=== PATIENT | female | born 1980 | race Caucasian/White ===

== ENCOUNTER → 2019-06-20 11:35 | Outpatient (CLI) | payer MEDICARE, MEDICAID, SELFPAY ==
--- NOTE | 2019-06-20 | DI.RAD.S_ITS ---
PROCEDURE: XR BONE LENGTH SCANOGRAM INDICATIONS: Unequal limb length (acquired), unspecified site TECHNIQUE: A single frontal standing view of both lower extremities acquired, with measuring ruler situated between the legs. COMPARISON: None. FINDINGS: Right: Total leg length is 84 cm. Left: Total leg length is 84 cm. IMPRESSION: No significant leg length discrepancy. Dictated by: Estephanie Espana M.D. on 06/21/2019 at 11:35 Approved by: Estephanie Espana M.D. on 06/21/2019 at 17:45
== END ==
PROVIDERS: PCP Family Medicine; Visit Provider Family Medicine
DX: M21.70 Unequal limb length (acquired), unspecified site (principal)
CPT/HCPCS: 77073; 77075

== ENCOUNTER 2022-04-22 11:50 | Day surgery (SDC) | payer MEDICARE, MEDICAID, SELFPAY ==
[2022-04-13 14:31] VITALS: BMI 43.0
[2022-04-22 12:14] VITALS: BP 130/80; PULSE 106; RESP 16; TEMP 36.8; O2SAT 100
[2022-04-22 12:40] VITALS: BMI 43.0
[2022-04-22 13:08] LABS: COVID19 -Nasal RAPID Negative (Negative)
== END 2022-04-22 11:55 | disposition home or self-care (01) ==
LOC: OR 11:51 → AC 13:59 → OR 04-23 09:58
PROVIDERS: PCP Nurse Practitioner Family; Referring Provider Obstetrics & Gynecology; Visit Provider Obstetrics & Gynecology
PROC: 0UT94ZZ Resection of Uterus, Percutaneous Endoscopic Approach (ICD-10-PCS; principal; 2022-04-22 13:45)
DX: N92.1 Excessive and frequent menstruation with irregular cycle (principal); E11.9 Type 2 diabetes mellitus without complications; Z20.822 Contact with and (suspected) exposure to COVID-19; Z53.9 Procedure and treatment not carried out, unspecified reason
CPT/HCPCS: 87635; C9803

== ENCOUNTER 2022-06-17 06:15 | Day surgery (SDC) | payer MEDICARE, MEDICAID, SELFPAY ==
[2022-06-16 08:46] VITALS: BMI 43.0
[2022-06-17] VITALS (12 sets, daily range): BP systolic 131–147; BP diastolic 79–90; PULSE 80–106; RESP 13–20; TEMP 35.9–37.4; O2SAT 91–98; BMI 43.0
--- NOTE | 2022-06-17 | PATH_ITS ---
[facility] Accession Number: [id number] . 01 Material submitted: . uterus - UTERUS, CERVIX AND BILATERAL FALLOPIAN TUBES . 01 Diagnosis: Uterus, Cervix, and Bilateral Fallopian Tubes; Hysterectomy and Bilateral Salpingectomy (with Preserved Ovaries): Cervix: Benign cervix with tunnel clusters and mild chronic inflammation. Negative for dysplasia and malignancy. Endometrium: Nonproliferative endometrium with focal changes suggestive of hormonal/progestin effect. Negative for endometrial polyps, hyperplasia, atypia, and malignancy. Myometrium: Negative for adenomyosis (on professional healthcare representative sections), leiomyomas, atypia, and malignancy. Bilateral fallopian fallopian tubes: Benign without atypia or malignancy. Paratubal cysts also present. MRV 06/21/2022 1717 Local . 01 Electronically signed: . Salomón Yusuf MD, Pathologist NPI- [id number] . 01 Gross description: . The specimen is received in formalin, labeled with the patient's name and uterus, cervix, bilat fallopian tubes, and consists of an intact uterus measuring (124 g, 10.4 cm SI, 5.3 cm ML, 4.7 cm AP) with attached cervix (3.5 x 2.4 cm), and two unoriented detached, fimbriated fallopian tubes (8.0 x 0.7 cm and 6.7 x 0.8 cm, respectively), with no additional adnexa identified. The ectocervix is pink-padilla and finely granular while the cervical os is patulous and measures 1.0 cm in diameter. The anterior parametrial margin is inked blue while the posterior parametrial margin is inked black. The uterine serosa is padilla and smooth with an area of hemorrhage measuring up to 2.1 cm in greatest dimension. The endocervical canal has padilla herringbone mucosa with multiple cystic structures filled with clear to white gelatinous material and measuring up to 0.8 cm in greatest dimension. The endocervical canal measures 3.3 cm in length. The endometrial cavity measures 2.9 cm from cornu to cornu and 5.2 cm in length with pink, lush endometrium that averages 0.2 cm thick with no lesions identified. The myometrium is padilla, firm, and trabecular with no nodules or lesions identified and measures up to 2.5 cm in maximum thickness. The longer fallopian tube has congested smooth serosa with multiple cystic structures near the fimbriated end measuring up to 0.7 cm in greatest dimension, filled with clear serous fluid. Sectioning reveals an unremarkable stellate lumen. The shorter fallopian tube has congested smooth serosa with no cystic structures identified. Sectioning reveals an unremarkable stellate lumen. Smoke Jumper sections are submitted as follows: A1: Anterior cervix and professional healthcare representative endocervical cyst. A2: Posterior cervix. A3: Anterior full-thickness section. A4: Posterior full-thickness section. A5: Longer fallopian tube to include professional healthcare representative cross sections and entire fimbriae. A6: [place] fallopian tube to include professional healthcare representative cross sections and entire fimbriae. ([id number]) /FRR 06/20/2022 [facility]2 Local . 01 Pathologist provided ICD-10: N92.1 . 01 CPT . 324940 Specimen Comment: A courtesy copy of this report has been sent to [phone] Performed at: 01 [facility] [address] [place] [address] [address] [facility], [place], [place] [id number] MD Donovan Azul MD Phone: [phone]
--- NOTE | 2022-06-17 06:36 | PM.GYNHP.1 ---
History of Present Illness History of Present Illness Reason for admission: vaginal bleeding Narrative: Patient is a 41-year-old para 3, LMP 05/23 - 06/04 who has had heavy menses since she started at age 10.? The patient has had 3 vaginal deliveries.? She had a Mirena IUD replaced after 5 years approximately 4 years ago.? She was evaluated and had the IUD appeared to be lower in the cervix so the IUD was removed and replaced on 01/06/2022.? Patient continues to have significant cramping with her menses.? She bleeds through overnight pads and super tampons every hour.? Periods are regular but last for 7 days.? She has a history of anemia and is on iron therapy.? She is not currently sexually active.? She has been evaluated by Urology for urinary incontinence.? She has irritable bowel syndrome so has constipation and diarrhea it periodically.? Patient had a normal Pap smear with negative HPV on 12/02/2021 and a endometrial biopsy that was negative for cancer precancer cells on 01/07/2022.? In November the patient had a normal ultrasound other than the malpositioned IUD. On physical exam the patient's abdomen is obese with no palpable organomegaly.? No significant tenderness.? Normal appearing external genitalia.? Normal-appearing vagina and cervix.? Bimanual was not performed because of the BMI would not have much information.? Repeat transvaginal ultrasound shows the IUD is in the correct place that at this time.? Patient with continued bleeding despite the Mirena IUD.? The patient has type 2 diabetes and her most recent A1c in January of 2022 is 6.7.? Patient is requesting proceeding with hysterectomy which has been scheduled for 06/17/2022 and she presents today for her scheduled procedure.? [facility] Medical History (Updated 03/03/22 @ 10:00 by Ronald Red MD) Abnormal Pap smear of cervix (~2007) Acne (~1994) ADHD (~1989) Anxiety (~1999) Autism (~1983) Chicken pox Depression (~1999) Diabetes mellitus (~2012) Frequent UTI (~2010) GERD (gastroesophageal reflux disease) (~2005) Heavy menstrual period (~1990) History of bipolar disorder (~1999) History of recurrent ear infection (~1984) History of urinary incontinence (~2010) Hypothyroidism Irregular menstrual cycle (~1990) Irritable bowel syndrome (~2009) Mumps (~1989) Painful menstrual periods (~1990) Pancreatitis (~2013) PTSD (post-traumatic stress disorder) (~1999) Seizures (~2018) Sleep apnea (~2011) Tachycardia (~2008) Surgical History (Updated 01/05/22 @ 21:02 by Irish Lizama) Anesthesia History of cholecystectomy (~11/2013) Family History (Updated 01/05/22 @ 21:04 by Irish Lizama) Father History of heart disease Mother Diabetes mellitus Grandmother Cancer Grandfather History of heart disease Social History household members: spouse and children Smoking Status: Never smoker alcohol intake: never Meds Home Medications and Allergies Home Medications Medication Instructions Recorded Confirmed Type atorvastatin 80 mg tablet 80 mg PO DAILY 12/02/21 06/16/22 History citalopram 20 mg tablet 20 mg PO DAILY 12/02/21 06/16/22 History cyclobenzaprine 10 mg tablet 10 mg PO TID 12/02/21 06/16/22 History dicyclomine 20 mg tablet 20 mg PO TID 12/02/21 06/16/22 History dulaglutide 1.5 mg/0.5 mL 1.5 mg SUBCUT QWEEK 12/02/21 06/16/22 History subcutaneous pen injector (Trulicity) famotidine 20 mg tablet 20 mg PO BID 12/02/21 06/16/22 History imipramine HCl 25 mg tablet 25 mg PO TID 12/02/21 06/16/22 History insulin aspart U-100 100 unit/mL 12 unit SUBCUT TID 12/02/21 06/16/22 History (3 mL) subcutaneous pen (Novolog Flexpen U-100 Insulin aspart) insulin glargine 100 unit/mL (3 20 unit SUBCUT BID 12/02/21 06/16/22 History mL) subcutaneous pen (Basaglar KwikPen U-100 Insulin) levetiracetam 500 mg tablet 500 mg PO BID 12/02/21 06/16/22 History (Keppra) levonorgestrel 20 mcg/24 hours (7 intrauterine 12/02/21 04/01/22 History yrs) 52 mg intrauterine device (Mirena) levothyroxine 25 mcg tablet 25 mcg PO DAILY 12/02/21 06/16/22 History meloxicam 15 mg tablet 15 mg PO DAILY 12/02/21 06/16/22 History metformin 1,000 mg tablet 1,000 mg PO BID 12/02/21 06/16/22 History oxcarbazepine 300 mg tablet 300 mg PO QID 12/02/21 06/16/22 History oxybutynin chloride 5 mg 5 mg PO BID 12/02/21 06/16/22 History tablet,extended release 24 hr promethazine 25 mg tablet 25 mg PO QID PRN Nausea 12/02/21 06/16/22 History propranolol 20 mg tablet 20 mg PO BID 12/02/21 06/16/22 History risperidone 1 mg tablet 1 mg PO DAILY 12/02/21 06/16/22 History lisinopril 10 mg tablet 10 mg PO DAILY 02/10/22 06/16/22 History Allergies Allergy/AdvReac Type Severity Reaction Status Date / Time aripiprazole [From Abilify] AdvReac Unknown panic Verified 04/22/22 12:17 attack fluoxetine [From Prozac] AdvReac Unknown Verified 04/22/22 12:17 trazodone AdvReac Unknown panic Verified 04/22/22 12:17 attack Review of Systems Review of Systems Narrative: Problem-specific ROS positives included in HPI Exam Const General: cooperative and comfortable Nutritional Appearance: average body habitus Orientation: alert and oriented x3 HENMT Head: normal to inspection, atraumatic and abrasion Ears: hearing grossly normal bilaterally Face and sinus: face symmetric Eyes General: appearance normal, both eyes and all related structures Conjunctivae: conjunctivae normal Sclera: sclerae normal EOM: EOM intact bilaterally Neck Neck: normal visual inspection Resp Effort & Inspection: normal respiratory effort and able to speak in complete sentences Auscultation: clear to auscultation bilaterally Cardio Rate: regular rate Rhythm: regular rhythm Heart Sounds: S1 normal, S2 normal and no murmurs GI Inspection: normal to inspection Palpation: soft, no hepatosplenomegaly and No tender External Female Exam: normal external appearance Speculum Exam - Vagina: normal appearance of the vagina and normal vaginal discharge Speculum Exam - Cervix: normal appearance of the cervix Bimanual Exam- Vagina & Uterus: normal bimanual exam, uterine size normal, uterine mobility normal and no cervical motion tenderness Bimanual Exam- Adnexa, other: normal adnexae, no masses and other (Unable to fully assess due to habitus) Extrem General: no calf tenderness Psych Appearance: grossly normal Mental Status: mental status grossly normal Speech and Movement: speech and movement normal Mood: congruent mood Affect: normal affect Attitude: cooperative Thought Process: normal Thought Content: normal Judgment: judgment good Assessment & Plan Assessment and plan (1) Menometrorrhagia: Status: Acute (2) Painful menstrual periods: Status: Acute Plan Patient counseled regarding alternatives, risks, benefits, and potential complications associated with total laparoscopic hysterectomy with bilateral salpingectomy.? With full understanding of the above, a written consent was executed, signed, and witnessed this date. Time Spent With Patient Critical Care time: I spent a total of [] minutes of critical care time on this patient's care today; this time is exclusive of procedural time.
--- NOTE | 2022-06-17 06:50 | PM.PREOP ---
Pre-operative Note COVID-19 COVID-19 status: Negative Result date/Date tested (Pos, Neg/Pending): 06/17/22 Criteria for continued procedure: Non-surgical alternatives not available or appropriate per current SOC Interval Note History & Physical reviewed/Exam performed by Physician: Yes Changes to H&P: No
[2022-06-17 07:06] LABS: COVID19 -Nasal RAPID Negative (Negative)
[2022-06-17] MEDS: CEFAZOLIN 2 GM/100 ML PREMIX 100 ML IV (08:30)
--- NOTE | 2022-06-17 08:49 | SUR.OPER ---
Lithotomy on padded OR bed. [place] Pad Positioner under torso. Head on pillow, arms padded and tucked at sides. Legs secured in padded yellow fins stirrups.
[2022-06-17] MEDS: LACTATED RINGERS 1,000 ML 100 ML IV ×3 (09:00→13:19)
[2022-06-17] MEDS: BUPIVACAINE 0.5% W/ EPI (PF) 30 ML VIAL INJ (09:05)
[2022-06-17] MEDS: CEFAZOLIN VIAL 1 GM in SODIUM CHLORIDE 0.9% 100 ML IV (09:15)
--- NOTE | 2022-06-17 12:06 | P.OP_ITS ---
Operative Date/Time/Diagnoses Date of procedure: 06/17/22 Time of procedure: 08:25 Pre-op diagnosis: Menometrorrhagia Dysmenorrhea Morbid obesity Post-op diagnosis: same Procedure & Clinicians Procedure: Procedures Operation Date: 06/17/22 07:45 Actual Procedure Side Surgeon p Removal of IUD, Laparoscopic-assisted vaginal hysterectomy with bilateral salpingectomy Ronald Red MD Indications: Patient is a 41-year-old para 3, LMP 05/23 - 06/04 who has had heavy menses since she started at age 10.? The patient has had 3 vaginal deliveries.? She had a Mirena IUD replaced after 5 years approximately 4 years ago.? She was evaluated and had the IUD appeared to be lower in the cervix so the IUD was removed and replaced on 01/06/2022.? Patient continues to have significant cramping with her menses.? She bleeds through overnight pads and super tampons every hour.? Periods are regular but last for 7 days.? She has a history of anemia and is on iron therapy.? She is not currently sexually active.? She has been evaluated by Urology for urinary incontinence.? She has irritable bowel syndrome so has constipation and diarrhea it periodically.? Patient had a normal Pap smear with negative HPV on 12/02/2021 and a endometrial biopsy that was negative for cancer precancer cells on 01/07/2022.? In November the patient had a normal ultrasound other than the malpositioned IUD. On physical exam the patient's abdomen is obese with no palpable organomegaly.? No significant tenderness.? Normal appearing external genitalia.? Normal-appearing vagina and cervix.? Bimanual was not performed because of the BMI would not have much information.? Repeat transvaginal ultrasound shows the IUD is in the correct place that at this time.? Patient with continued bleeding despite the Mirena IUD.? The patient has type 2 diabetes and her most recent A1c in January of 2022 is 6.7.? Patient is requesting proceeding with hysterectomy which has been scheduled for 06/17/2022 and she presents today for her scheduled procedure.? Surgeon: Ronald Red Roller Operator: Shara Quiroz Anesthesia Type: General Operative Notes Findings: At the beginning of the case, an intact Mirena IUD was present within the endometrial cavity and removed at the outset of the procedure. The uterus is normal in size and shape. The fallopian tubes are also normal as are the ovaries. The anterior and posterior cul-de-sacs could not be visualized due to marked pelvic adiposity and distention of the sigmoid colon which made it impossible to fully visualize the pelvis and to deviate from the planned total laparoscopic hysterectomy in favor of laparoscopic-assisted vaginal hysterectomy with bilateral salpingectomy. The upper abdomen was normal to laparoscopic visualization. The appendix was not visualized. Closure Type: primary Specimen(s): left tube, right tube and uterus Applied: catheter Estimated blood loss (mL): 200 Blood products transfused: none Procedure in detail: With the patient under satisfactory general anesthesia in the modified dorsal lithotomy position, the perineum, vagina, and abdomen were prepped and draped in the usual manner for total laparoscopic hysterectomy. A Luo catheter was inserted in the bladder. A pre-surgical safety time-out was then taken in accordance with [facility] Main OR protocols. A Jose Carlos clamp was used to remove the IUD from the endometrial cavity and the IUD itself was found to be intact. The endocervical canal was then dilated and a [employer] uterine manipulator with a large cup was placed and secured. The skin of the umbilicus was infiltrated with 0.5% Marcaine with epinephrine and a 1 cm transverse umbilical incision was made. A Veress needle was then used to insufflate the abdomen with carbon dioxide in once insufflated a 5 mm laparoscopic trocar and sleeve were placed through the incision. Correct placement of the trocar in the abdominal cavity was confirmed with the laparoscoped and a 2nd and 3rd 5 mm trocar and sleeve were placed in the right and left mid quadrants using a similar technique. A 4th 5 mm trocar and sleeve was then placed in the midline in the suprapubic region. Using a 4 puncture technique, attempts were made to thoroughly visualize the pelvis but these efforts were frustrated by distended sigmoid and marked adiposity in the pelvis as well as the omentum and the epiploica of the large intestine. As result the posterior cul-de-sac and even the anterior cul-de-sac could not be well-visualized and the decision was therefore made to change the surgical plan from total laparoscopic hysterectomy to a laparoscopic-assisted vaginal hysterectomy. The left fallopian tube was grasped at its distal most portion and using a LigaSure device, the fimbria ovarica was coagulated and divided followed by coagulation and division of the mesosalpinx to the level of the cornua at which point the tube itself was coagulated, divided, and removed through 1 of the 5 mm ports. Attention was then turned to the right side with the distal tube grasped with a grasping forceps and LigaSure device used to coagulate 1st the fimbria ovarica followed by coagulation and division of the mesosalpinx to the cornua on the right side where the tube was amputated and retrieved through 1 of the 5 mm ports. The LigaSure device was then used to coagulate and divide the utero-ovarian ligament on the right side followed by the round ligament on the right side. The dissection could not be carried downward any further due to inadequate exposure. Attention was then turned to the left side where the utero-ovarian ligament and round ligament were coagulated and divided as it had been on the right side. At that point preparations were made to move to the vaginal portion of the case and the patient was appropriately reposition. A weighted speculum was placed in the vagina and sidewall retractors placed. The cervix was grasped with 2 single- tooth tenaculum and infiltrated with 0.5% Marcaine with epinephrine. The circumferencial incision of the portio was then made with electrocautery and the bladder was advanced with a Ray-Alan. Posterior colpotomy was then performed and the peritoneum tagged. Uterosacral ligaments were then taken with Mago clamps on both sides with each pedicle secured with a 0 Vicryl transfixing suture. The bladder was further advanced and sequential pedicles were taken on both sides with Mago clamps and each pedicle was secured with 0 Vicryl and a transfixing stitch. At that point the anterior colpotomy was completed and retractor placed through that defect. Sequential vascular pedicles were then taken of both sides of the uterus with Mago clamps and each pedicle was secured with 0 Vicryl and a transfixing stitch. Once the level of the cornua had been reached the cornual structures were cross clamped and free ties were used to secure those pedicles. The pedicles were all inspected carefully and there was no evidence of any bleeding from any of them or any gaps between them. The vaginal cuff was then closed with 0 0 Vicryl in a running interlocking stitch initiated at both angles and tying together near the midline. Hemostasis was excellent as was apical support. The abdomen was then reinflated with carbon dioxide and attempts were made to fully visualize the pelvis but these attempts were again frustrated by the patient's marked adiposity and continued distention of the sigmoid colon making it impossible to fully visualize the pelvis. There was however no evidence of any bleeding within the abdominal cavity and the operation was then terminated by venting of the pneumoperitoneum, removal of the laparoscopic ports, and closure of the laparoscopic port incisions with 4-0 Monocryl using inverted interrupted stitches. Skin glue was applied appropriate dressings followed. Patient was awakened from anesthesia and transferred to the PACU for a period of observation and recovery having tolerated the procedure well. Complications: none Post-operative Condition: stable Disposition: PACU Plan for aftercare: Possible discharge later today or in the AM.
[2022-06-17] MEDS: ONDANSETRON 4 MG/2 ML INJ IV (12:29)
[2022-06-17] MEDS: DICYCLOMINE 10 MG CAPSULE 20 MG PO ×2 (14:43→21:51)
[2022-06-17] MEDS: CYCLOBENZAPRINE 10 MG TABLET PO ×2 (14:43→21:51)
[2022-06-17] MEDS: OXYCODONE IR 5 MG TABLET 10 MG PO ×2 (14:54→21:49)
[2022-06-17] MEDS: OXcarbazepine 150 MG TABLET 300 MG PO ×3 (15:05→21:51)
--- NOTE | 2022-06-17 15:38 | PC.NURSE ---
Addendum entered by Mandy Villasenor R.N. 06/17/22 16:03: Hidalgo Cath removed per nurse driven protocol. Dr. Red aware. Original Note: Admit note: Patient admitted to room 210 from PACU, awake, alert, and cooperative. Received on RA, O2 sat 94%. VSS and afebrile. Minimal drainage to peripad, hidalgo cath in place with clear yellow urine to gravity. IVF and SCDs initiated on arrival. BG 279 mg/dl. Up OOB to BR, attempted BM, unsuccessful. Dr. Red updated. Oriented to room, environment, and plan of care. IS teaching done.
[2022-06-17 17:27] LABS: Add Manual Diff / Slide Review NO; Basophils Absolute Auto 0 /uL (0-100); Basophils Percent Auto 0.2 % (0-2); Eosinophils Absolute Auto 0 /uL (0-450); Eosinophils Percent Auto 0.1 % (2-4); Hematocrit 29.9 % (36-46); Hemoglobin 9.7 g/dL (12.0-16.0); Lymphocytes Absolute Auto 1000 /uL (1100-4500); Lymphocytes Percent Auto 8.4 % (25-40); Mean Corpuscular HGB Conc 32.4 % (30-36); Mean Corpuscular Hemoglobin 25.1 PG (26-34); Mean Corpuscular Volume 77.3 fL (80-100); Monocytes Absolute Auto 400 /uL (0-900); Monocytes Percent Auto 3.5 % (3-14); Neutrophils Absolute Auto 10800 /uL (1500-7000); Neutrophils Percent Auto 87.8 % (50-75); Platelet Count 213 X10^3/uL (150-400); Red Blood Cell Count 3.87 X10^6/uL (4.0-5.2); Red Cell Distribution Width 16.3 % (11.6-14.8); White Blood Cell Count 12.3 X10^3/uL (4.5-11.0)
[2022-06-17] MEDS: IBUPROFEN 600 MG TABLET PO (17:28)
[2022-06-17] MEDS: ACETAMINOPHEN 325 MG TABLET 650 MG PO (17:29)
[2022-06-17] MEDS: INSULIN LISPRO 100 UNIT/ML 3ML VIAL 12 UNIT SUBCUT (17:32)
--- NOTE | 2022-06-17 18:48 | PC.NURSE ---
Care resumed of patient at 1530. Pt A&O X3, VSS afebrile on RA. Lap sites to abdomen c/d/i, she reports pain 5/10 cramping, controlled well with prn pain medications. She is able to void after hidalgo removal, and tolerated dinner well. BG 270 this evening and scheduled insulin administered. She denies complaints. MD Red notified pt planning to stay this evening due to Medicaid transportation. Continuous monitoring.
[2022-06-17] MEDS: METFORMIN HCL 500 MG TABLET 1000 MG PO (21:51)
[2022-06-17] MEDS: OXYBUTYNIN 5 MG ER TAB PO (21:51)
[2022-06-17] MEDS: PROPRANOLOL 10 MG TABLET 20 MG PO (21:51)
[2022-06-17] MEDS: FAMOTIDINE 20 MG TABLET PO (21:52)
[2022-06-17] MEDS: INSULIN GLARGINE 100 UNIT/ML 3ML PEN 20 UNIT SUBCUT (21:57)
[2022-06-18] MEDS: LACTATED RINGERS 1,000 ML 100 ML IV (00:28)
[2022-06-18 01:26] VITALS: BP 102/52; PULSE 92; RESP 16; TEMP 36.2; O2SAT 97
[2022-06-18 05:30] VITALS: BP 95/55; PULSE 93; RESP 18; TEMP 36.4; O2SAT 97
[2022-06-18] MEDS: ACETAMINOPHEN 325 MG TABLET 650 MG PO (05:59)
[2022-06-18] MEDS: LEVOTHYROXINE 25 MCG TABLET PO (05:59)
[2022-06-18] MEDS: OXYCODONE IR 5 MG TABLET 10 MG PO (06:00)
[2022-06-18] MEDS: IBUPROFEN 600 MG TABLET PO (06:48)
[2022-06-18 07:46] VITALS: BP 120/65; PULSE 93; RESP 16; TEMP 36.8; O2SAT 96
--- NOTE | 2022-06-18 08:03 | P.DS_ITS ---
History of Present Illness History of Present Illness Date Patient Seen: 06/18/22 Time Patient Seen: 08:04 Chief complaint: TOTAL LAP HYSTERECTOMY & REMOVE IUD *OPB* Discharge Providers Provider Date of admission: 06/17/2022 Discharge Date: 06/18/22 Primary care physician: ESTELA Sharp Consults: 06/17/22 07:08 Consult to Respiratory Therapy Evaluate & Treat Comment: Physician Instructions: Evaluate and treat Discharge provider: Ronald Red MD Summary Hospital Course Discharge Diagnosis: Menometrorrhagia Dysmenorrhea Hospital Course: She low was admitted on the morning of 06/17/2022 for removal of her IUD and performance of a planned total laparoscopic hysterectomy bilateral salpingectomy. Due to anatomic considerations, planned TLH was aborted and instead a laparoscopic-assisted vaginal hysterectomy (LAVH) with bilateral salpingectomy was performed instead. Surgery itself was uneventful and details of the procedure well summarized on my operative note of that date. Following surgery the patient has done extremely well with prompt return of bowel and bladder function, she is ambulating independently, tolerating regular diet, and her pain is well to oral pain medications. She will be discharged at this time home in an afebrile normotensive condition after counseling regarding precautionary symptoms, limitations activity, medications, and plans for follow- up which will be in 2 weeks. Medications at discharge will include ibuprofen 600 mg p.o. 6 hours as needed pain dispense 60, oxycodone 10 mg p.o. q.8 hours as needed pain dispensed 15 no refills, and Cipro 500 mg p.o. b.i.d. x5 days for UTI prophylaxis following catheterization during her surgery. Status at Discharge Cognitive/behavioral status at discharge: oriented Functional status at discharge: independent ambulation Overall status at discharge: patient is progressing back to baseline Time Spent with Patient Time spent: Less than 30 minutes Exam Vital Signs (past 8 hours): - 06/18/22 01:26 06/18/22 05:30 06/18/22 07:46 Temperature 97.2 F L 97.6 F 98.3 F Pulse Rate 92 H 93 H 93 H Respiratory Rate 16 18 16 Blood Pressure 102/52 L 95/55 L 120/65 Pulse Oximetry 97 97 96 Oxygen Flow Rate 0 0 Oxygen Delivery Method Room Air Oxygen Flow Rate 0 Const General: cooperative and comfortable Nutritional Appearance: average body habitus Orientation: alert and oriented x3 HENNE Head: normal to inspection, atraumatic and abrasion Ears: hearing grossly normal bilaterally Face and sinus: face symmetric Eyes General: appearance normal, both eyes and all related structures Conjunctivae: conjunctivae normal Sclera: sclerae normal EOM: EOM intact bilaterally Neck Neck: normal visual inspection Resp Effort & Inspection: normal respiratory effort and able to speak in complete sentences Auscultation: clear to auscultation bilaterally Cardio Rate: regular rate Rhythm: regular rhythm Heart Sounds: S1 normal, S2 normal and no murmurs GI Inspection: normal to inspection and incision (Surgical dressings clean and dry) Palpation: soft, no hepatosplenomegaly and tender (Mild, diffuse postsurgical tenderness) External Female Exam: other (No significant bleeding noted) Extrem General: no calf tenderness Psych Appearance: grossly normal Mental Status: mental status grossly normal Speech and Movement: speech and movement normal Mood: congruent mood Affect: normal affect Attitude: cooperative Thought Process: normal Thought Content: normal Judgment: judgment good Objective Labs Result Diagrams: 06/17/22 17:20 Labs: Laboratory Results - last 24 hr 06/17/22 17:20 WBC 12.3 H RBC 3.87 L Hgb 9.7 L Hct 29.9 L MCV 77.3 L MCH 25.1 L MCHC 32.4 RDW 16.3 H Plt Count 213 Neut % (Auto) 87.8 H Lymph % (Auto) 8.4 L [place] % (Auto) 3.5 Eos % (Auto) 0.1 L Baso % (Auto) 0.2 Neut # (Auto) 73097 H Lymph # (Auto) 1000 L [place] # (Auto) 400 Eos # (Auto) 0 Baso # (Auto) 0 PFSH Medical History (Updated 03/03/22 @ 10:00 by Ronald Red MD) Abnormal Pap smear of cervix (~2007) Acne (~1994) ADHD (~1989) Anxiety (~1999) Autism (~1983) Chicken pox Depression (~1999) Diabetes mellitus (~2012) Frequent UTI (~2010) GERD (gastroesophageal reflux disease) (~2005) Heavy menstrual period (~1990) History of bipolar disorder (~1999) History of recurrent ear infection (~1984) History of urinary incontinence (~2010) Hypothyroidism Irregular menstrual cycle (~1990) Irritable bowel syndrome (~2009) Mumps (~1989) Painful menstrual periods (~1990) Pancreatitis (~2013) PTSD (post-traumatic stress disorder) (~1999) Seizures (~2018) Sleep apnea (~2011) Tachycardia (~2008) Surgical History (Updated 01/05/22 @ 21:02 by Irish Lizama) Anesthesia History of cholecystectomy (~11/2013) Family History (Updated 01/05/22 @ 21:04 by Irish Lizama) Father History of heart disease Mother Diabetes mellitus Grandmother Cancer Grandfather History of heart disease Social History household members: spouse and children Smoking Status: Never smoker alcohol intake: never Discharge Assessment & Plan Assessment and Plan Assessment: 1. Menometrorrhagia 2. Dysmenorrhea 3. Morbid obesity 4. Status post laparoscopic-assisted vaginal hysterectomy bilateral salpingectomy diagnosis 1 & 2 Plan of Treatment: Routine postoperative care with postop visit scheduled for 2 weeks following discharge Discharge Plan Discharge Plan Patient Disposition: Home Provider Discharge Comment: Please review the written instructions you received when you were discharged from the hospital. Your follow-up appointment will need to be scheduled for 2 weeks after your surgery and I look forward to seeing you then. If however in the meanwhile you have any concerns, problems, or questions, please contact me through the office phone [phone] or via the patient portal. Discharge orders & Medications Discharge Orders: Discharge (Order); Ordered 06/18/22 Ordered By: Ronald Red Prescriptions: New ibuprofen 600 mg Tablet 600 mg PO Q6HR PRN (Reason: Fever/Mild Pain (1-3)) Qty: 60 2RF oxycodone 5 mg Tablet 10 mg PO Q8H PRN (Reason: Pain, Severe (7-10)) 5 Days Qty: 15 0RF ciprofloxacin HCl [Cipro] 500 mg tablet 500 mg PO BID 5 Days Qty: 10 0RF Continued Trulicity 1.5 mg/0.5 mL pen injector 1.5 mg SUBCUT QWEEK insulin aspart U-100 [Novolog Flexpen U-100 Insulin] 100 unit/mL (3 mL) insulin pen 12 unit SUBCUT TID risperidone 1 mg tablet 1 mg PO DAILY oxybutynin chloride 5 mg tablet extended release 24 hr 5 mg PO BID citalopram 20 mg tablet 20 mg PO DAILY levothyroxine 25 mcg tablet 25 mcg PO DAILY oxcarbazepine 300 mg tablet 300 mg PO QID atorvastatin 80 mg tablet 80 mg PO DAILY propranolol 20 mg tablet 20 mg PO BID famotidine 20 mg tablet 20 mg PO BID metformin 1,000 mg tablet 1,000 mg PO BID promethazine 25 mg tablet 25 mg PO QID PRN (Reason: Nausea) meloxicam 15 mg tablet 15 mg PO DAILY cyclobenzaprine 10 mg tablet 10 mg PO TID Mirena 20 mcg/24 hours (7 yrs) 52 mg intrauterine device See Rx Instructions .ROUTE .COMPLEX Rx Instructions: . Basaglar KwikPen U-100 Insulin 100 unit/mL (3 mL) insulin pen 20 unit SUBCUT BID dicyclomine 20 mg tablet 20 mg PO TID lisinopril 10 mg tablet 10 mg PO DAILY Follow up/Referrals: Joana Perea ARNP [Primary Care Provider] - Diet/Activity/Treatments Diet: Diet as Tolerated Activity: As tolerated Other treatments: [id number] Tylenol may also be used for additional pain relief Skin/Wound/Dressing Care Dressing: Dressings may be removed on the morning of 06/19/2022 Visit Report/Discharge Packet Instructions: DI for Hysterectomy, DI for Laparoscopy Stand Alone Forms: Surgery Discharge Discharge Data Primary Care Provider: Joana Perea Attending Provider: Ronald Red VTE Deep Vein Thrombosis/Pulmonary Embolism Present on Admission: No
[2022-06-18 08:41] VITALS: BP 120/65; PULSE 93
[2022-06-18] MEDS: DICYCLOMINE 10 MG CAPSULE 20 MG PO (08:41)
[2022-06-18] MEDS: risperiDONE 1 MG TABLET PO (08:41)
[2022-06-18] MEDS: CITALOPRAM 10 MG TABLET 20 MG PO (08:41)
[2022-06-18] MEDS: OXYBUTYNIN 5 MG ER TAB PO (08:41)
[2022-06-18] MEDS: lisinopriL 10 MG TABLET PO (08:41)
[2022-06-18] MEDS: FAMOTIDINE 20 MG TABLET PO (08:41)
[2022-06-18] MEDS: ATORVASTATIN 20 MG TABLET 80 MG PO (08:42)
[2022-06-18] MEDS: METFORMIN HCL 500 MG TABLET 1000 MG PO (08:42)
[2022-06-18] MEDS: CYCLOBENZAPRINE 10 MG TABLET PO (08:43)
[2022-06-18] MEDS: PROPRANOLOL 10 MG TABLET 20 MG PO (08:43)
[2022-06-18] MEDS: INSULIN GLARGINE 100 UNIT/ML 3ML PEN 20 UNIT SUBCUT (08:44)
[2022-06-18] MEDS: MELOXICAM 7.5 MG TABLET 15 MG PO (08:44)
[2022-06-18] MEDS: OXcarbazepine 150 MG TABLET 300 MG PO (08:44)
[2022-06-18] MEDS: INSULIN LISPRO 100 UNIT/ML 3ML VIAL 12 UNIT SUBCUT (08:45)
--- NOTE | 2022-06-18 10:47 | CM.DANOTE ---
Initial Discharge Assessment Note: Case reviewed, met with patient. Introduced self and role. Payer: Medicare and Medicaid 41 year old , disabled female admitted yesterday for a total lap hysterectomy and removal of IUD. Patient lives with her spouse and family in [place]. She requires Medicaid transport on DC. DC orders in. Plan: Discharge home with Medicaid transport who will come at 12:00. Notified nurse Kuldeep. VANESSA Discharge Planning/Care Management CM Discharge Assessment Start: 06/18/22 10:45 Freq: Status: Active Protocol: Document 06/18/22 10:45 SJ (Rec: 06/18/22 10:46 [id number]) Discharge Planning Assessment Assigned Newspaper Clipper Anai Elias RN/JONATANP Advance Directives? No History Provided By Patient,Medical Record Has Patient been admitted in last 30 No days? Prior Living Arrangements House Household Members spouse,children Type of transporation used prior to Drives own vehicle admit Independent with ADL's Yes Is patient alert and oriented? Yes Caregiver for Another No Discharge Plan Home Referrals Initiated None needed Review Status In Process Next Review Type Continued Stay Review Pre-Anesthesia Assessment Start: 06/16/22 08:46 Freq: Status: Complete Protocol: Document 06/16/22 08:46 CAB (Rec: 06/16/22 08:51 CAB [id number]) Pre-Anesthesia Assessment Patient Information Reviewed Via Chart Review Comment COVID-RAPID on admit Primary Care Provider Joana Perea Seen Specialist in Last 12 Months Yes Specialist Seen Aco Coordinator Primary Language Swiss Supervisor Cellars Required No Height 172.72 cm Weight 128.367 kg Body Mass Index (BMI) 43.0 Comment Hx of Autism, ADHD, Bipolar disorder Hx Anesthesia Reactions Yes: Issue with sedation during endoscopy 2003 Hx Family Anesthesia Reaction No Hx Malignant Hyperthermia No Hx Blood Transfusion Reaction No Anesthesia Review Requested No Coutierier No alcohol intake never Smoking Status Never smoker Substance Use Type does not use History of Falling (Recent or History of No ) Patient is completely paralyzed or No completely immobile Mental Status Oriented to own ability Hx Sleep Apnea Yes CPAP/BIPAP use prescribed and used routinely Currently Taking a Beta Mikaela Yes: Propranolol Cardiac Testing No Hx Pacemaker/ICD No Pacemaker Rep Required? No Gastrointestinal Symptoms Reflux Urinary Catheter Present No Hx Urinary Self Catheterization No Diabetes Yes HgbA1C 6.7 Comment 01/2022 Patient No Lactating No Presence of External or Internal Medical No Devices Received a COVID vaccine? Yes Marital Status Lives With spouse,children Patient Discharge Plan Description Return Home Advance Directives? No
--- NOTE | 2022-06-18 12:08 | PC.NURSE ---
DayShift Pt discharged floor at 1200 via wheelchair and cabulance, Pt had all personal belongings, all paperwork received and questions answered and signed documentation. Pt denied any pain or nausea VS WNL.
== END 2022-06-18 12:13 | disposition home or self-care (01) ==
LOC: OR 06:17 → AC 06:18
PROVIDERS: PCP Nurse Practitioner Family; Referring Provider Obstetrics & Gynecology; Visit Provider Obstetrics & Gynecology
PROC: 0UT94ZZ Resection of Uterus, Percutaneous Endoscopic Approach (ICD-10-PCS; CPT 58301; principal; 2022-06-17 07:45)
DX: N92.1 Excessive and frequent menstruation with irregular cycle (principal); N94.6 Dysmenorrhea, unspecified; Z30.432 Encounter for removal of intrauterine contraceptive device; E66.01 Morbid (severe) obesity due to excess calories; N83.8 Other noninflammatory disorders of ovary, fallopian tube and broad ligament; N72 Inflammatory disease of cervix uteri; E11.9 Type 2 diabetes mellitus without complications; Z79.4 Long term (current) use of insulin; Z79.84 Long term (current) use of oral hypoglycemic drugs; E03.9 Hypothyroidism, unspecified; Z68.41 Body mass index [BMI] 40.0-44.9, adult; Z20.822 Contact with and (suspected) exposure to COVID-19
CPT/HCPCS: 58301; 58552; 00840; 82962; 85025; 87635; C9803; A9270; J0330; J0690; J1100; J1815; J2250; J2405; J2704; J3010

== ENCOUNTER → 2023-06-30 07:35 | Outpatient (CLI) | payer MEDICARE, MEDICAID, SELFPAY ==
[2022-06-18 13:16] VITALS: BMI 43.0
--- NOTE | 2023-06-30 | DI.NM.S_ITS ---
PROCEDURE: NM GASTRIC EMPTYING STUDY RADIOPHARMACEUTICAL: 1.0 mCi Tc-99m sulfur colloid in an egg sandwich. INDICATIONS: Nausea with vomiting, unspecified TECHNIQUE: A Tc-99m labeled sulfur colloid labeled egg sandwich or oatmeal was served to the patient. Anterior and posterior planar images of the abdomen were obtained at 0 minutes and 30 minutes, then at hourly intervals up to 4 hours. The patient was upright and ambulating during the interval. COMPARISON: None. FINDINGS: The stomach has normal size, morphology, and position. There is normal emptying of solid gastric contents from the stomach by visual inspection. No gastroesophageal reflux is visualized. The percentage of tracer retained at specific time points are as follows: Time point Percent gastric retention Normal range 30 minutes 89% 70% or more 1 hour 64% 30% to 90% 2 hours 39% 60% or less 3 hours 15% 30% or less 4 hours 4% 10% or less IMPRESSION: Normal examination without scintigraphic evidence delayed gastric emptying. Dictated by: Paula Santoyo MD, PhD on 06/30/2023 at 13:05 Approved by: Paula Santoyo MD, PhD on 06/30/2023 at 13:07
== END ==
PROVIDERS: PCP Nurse Practitioner Family; Referring Provider Internal Medicine Gastroenterology; Visit Provider Internal Medicine Gastroenterology
DX: R11.2 Nausea with vomiting, unspecified (principal); R14.0 Abdominal distension (gaseous)
CPT/HCPCS: 78264; A9541

== ENCOUNTER 2023-07-18 09:49 | Day surgery (SDC) | payer MEDICARE, MEDICAID, SELFPAY ==
[2022-06-18 13:16] VITALS: BMI 43.0
--- NOTE | 2023-07-18 | PATH_ITS ---
[facility] Accession Number: [id number] No. of containers..02 Tissue . 01 Material submitted: . PART A: duodenum - DUODENUM BIOPSY PART B: stomach - ANTRUM . 01 Diagnosis: A. Duodenum, Biopsy: Duodenal mucosa with active inflammation, nonspecific. Negative for dysplasia or malignancy. . B. Antrum: Gastric antral and body-type mucosa with mild chronic inflammation. Negative for Helicobacter organisms by immunohistochemistry. Negative for intestinal metaplasia. Negative for dysplasia or malignancy. MRV 08/01/2023 1203 Local . 01 Electronically signed: . Afsaneh Uribe MD, Pathologist NPI- [id number] . 01 Gross description: . Part A: DUODENUM BIOPSY: Received in formalin is 2 fragment(s) of padilla, soft tissue measuring 0.4 x 0.2 x 0.1 cm to 0.2 x 0.1 x 0.1 cm submitted entirely in 1 cassette(s) Part B: ANTRUM: Received in formalin is 2 fragment(s) of padilla, soft tissue measuring 0.3 x 0.2 x 0.1 cm to 0.2 x 0.2 x 0.1 cm submitted entirely in 1 cassette(s) /AAY 07/19/2023 0523 Local . 01 Microscopic: . B. An immunohistochemical stain was performed to evaluate for Helicobacter organisms and is negative. The control stain showed appropriate reactivity. . * This test was developed and its performance characteristics determined by [employer]. It has not been cleared or approved by the U.S. Food and Drug Administration. The FDA has determined that such clearance or approval is not necessary. This test is used for clinical purposes. It should not be regarded as investigational or for research. . 01 Pathologist provided ICD-10: K58.9, R14.0, R19.5, D64.9, R11.2 . 01 CPT . 684604, 810331, S92667 Specimen Comment: A courtesy copy of this report has been sent to [phone] Performed at: 01 [facility] [address] [place] [address] [id number] MD Donovan Azul MD Phone: [phone]
[2023-07-18 10:09] VITALS: BMI 42.5
[2023-07-18 10:15] VITALS: BP 146/96; PULSE 115; RESP 18; TEMP 36.3; O2SAT 100
[2023-07-18] MEDS: LACTATED RINGERS 1,000 ML 42 ML IV (10:26)
--- NOTE | 2023-07-18 10:51 | P.HP_ITS ---
History of Present Illness History of Present Illness Date Patient Seen: 07/18/23 Time Patient Seen: 10:51 Chief complaint: EGD & Colonoscopy Narrative: I reviewed my recent office note from June 14. No significant changes. Gastric emptying study was accomplished and normal. [facility] Medical History Menometrorrhagia Acne (~1994) Sleep apnea (~2011) PTSD (post-traumatic stress disorder) (~1999) Depression (~1999) History of bipolar disorder (~1999) Anxiety (~1999) Seizures (~2018) Autism (~1983) ADHD (~1989) Mumps (~1989) Chicken pox History of recurrent ear infection (~1984) Abnormal Pap smear of cervix (~2007) History of urinary incontinence (~2010) Frequent UTI (~2010) Pancreatitis (~2013) Irritable bowel syndrome (~2009) GERD (gastroesophageal reflux disease) (~2005) Hypothyroidism Diabetes mellitus (~2012) Tachycardia (~2008) Surgical History Anesthesia History of cholecystectomy (~11/2013) Family History Father History of heart disease Mother Diabetes mellitus Grandmother Cancer Grandfather History of heart disease Social History household members: spouse and children Smoking Status: Never smoker alcohol intake: never Meds Home Medications and Allergies Home Medications Medication Instructions Recorded Confirmed Type atorvastatin 80 mg tablet 80 mg PO DAILY 12/02/21 07/18/23 History citalopram 20 mg tablet 20 mg PO DAILY 12/02/21 07/18/23 History cyclobenzaprine 10 mg tablet 10 mg PO TID PRN Pain (Scale Score 12/02/21 07/18/23 History 1-3) dicyclomine 20 mg tablet 20 mg PO TID 12/02/21 07/18/23 History dulaglutide 1.5 mg/0.5 mL 3 mg SUBCUT QWEEK 12/02/21 07/18/23 [facility] famotidine 20 mg tablet 20 mg PO BID 12/02/21 07/18/23 History insulin aspart U-100 100 unit/mL 20 unit SUBCUT TID 12/02/21 07/18/23 History (3 mL) subcutaneous pen (Novolog FlexPen U-100 Insulin aspart) insulin glargine 100 unit/mL (3 76 unit SUBCUT DAILY 12/02/21 07/18/23 History mL) subcutaneous pen (Basaglar KwikPen U-100 Insulin) levothyroxine 25 mcg tablet 25 mcg PO DAILY 12/02/21 07/18/23 History meloxicam 15 mg tablet 15 mg PO DAILY PRN Sleep 12/02/21 07/18/23 History metformin 1,000 mg tablet 1,000 mg PO BID 12/02/21 07/18/23 History oxcarbazepine 300 mg tablet 300 mg PO QID 12/02/21 07/18/23 History oxybutynin chloride 5 mg 5 mg PO BID 12/02/21 07/18/23 History tablet,extended release 24 hr promethazine 25 mg tablet 25 mg PO QID PRN Nausea 12/02/21 07/18/23 History propranolol 20 mg tablet 20 mg PO BID 12/02/21 07/18/23 History risperidone 1 mg tablet 1 mg PO DAILY 12/02/21 07/18/23 History lisinopril 10 mg tablet 10 mg PO DAILY 02/10/22 07/18/23 History ferrous fumarate 324 mg (106 mg 324 mg PO Q OTHER DAY anemia 07/18/23 07/18/23 History iron) tablet Allergies Allergy/AdvReac Type Severity Reaction Status Date / Time fluoxetine [From Prozac] AdvReac Severe Anxiety Verified 07/18/23 10:01 aripiprazole [From Abilify] AdvReac Unknown panic Verified 07/18/23 10:01 attack trazodone AdvReac Unknown panic Verified 07/18/23 10:01 attack Review of Systems Review of Systems ROS: Yes All systems reviewed with the patient and are negative except as otherwise documented Exam Vital Signs (past 8 hours): - 07/18/23 10:15 Temperature 97.4 F L Pulse Rate 115 H Respiratory Rate 18 Blood Pressure 146/96 H Pulse Oximetry 100 Oxygen Delivery Method Room Air Oxygen Delivery Method Room Air Const General: cooperative HENMT Head: normal to inspection Eyes General: appearance normal, both eyes and all related structures Neck Neck: normal visual inspection Chest Chest: normal inspection of the chest Resp Effort & Inspection: normal respiratory effort Cardio Rate: regular rate GI Inspection: normal to inspection Skin General: no rashes or lesions noted Neuro General: patient alert and patient awake Extrem General: normal to inspection and no pedal edema Psych Appearance: grossly normal Assessment & Plan Assessment & Plan narrative: 42-year-old female with chronic nausea intermittent vomiting. Gastric emptying study is normal. Diagnostic EGD is pursued. There was additionally a family history of colon cancer and it has been 13 years the last colonoscopy. Both EGD and colonoscopy are therefore pursued today.
--- NOTE | 2023-07-18 10:53 | PM.PREOP ---
Pre-operative Note Interval Note History & Physical reviewed/Exam performed by Physician: Yes Changes to H&P: No ASA Class (for procedural sedation): III
--- NOTE | 2023-07-18 12:01 | PM.OP.EC ---
Operative Date/Time/Diagnoses Date of procedure: 07/18/23 Time of procedure: 12:02 Pre-op diagnosis: Chronic nausea intermittent vomiting. Family history of colon cancer. Post-op diagnosis: same Procedure & Clinicians Study performed: EGD with biopsies and a colonoscopy Same procedure as scheduled: Yes Indications: Nausea with intermittent sporadic vomiting. Family history of colon cancer Surgeon: Byron Crenshaw Procedure Notes SCOAP/Timeout: Done Procedure in detail: After the risks and benefits were explained, written and verbal informed consent was obtained. The patient was brought into the procedure room and placed into the left lateral decubitus position. Please see anesthesia notes for sedation details. The scope was introduced into the mouth through the bite block and advanced under direct visualization to the 2nd portion of the duodenum. The scope was slowly withdrawn carefully examining the mucosa for any defects or lesions. Retroflexed views were accomplished in the stomach. The stomach was decompressed, the scope was then removed from the patient who tolerated the procedure well. The patient was then turned around. A digital rectal examination was accomplished. The scope was introduced into the rectum and advanced to the cecum as identified by the appendiceal orifice and ileocecal valve. The scope was slowly withdrawn to carefully examine the mucosa for any defects or lesions. Multiple direct views were made through the dentate line for exclusion of pathology. The colon was decompressed. The scope was removed from the patient who tolerated the procedure well. Adult colonoscope Bowel prep adequate Scope withdrawal time: 6 minutes Sedation minutes: 28 Complications: none Impression: 1. Duodenum: There were some scattered superficial erosive features noted in the distal duodenal bulb. Some of these were targeted for biopsy and submitted for histology. Duodenal mucosa in the 2nd portion was normal. No large ulcers no mass lesions. 2. Stomach: No gastric outlet obstruction. No ulcers no mass lesions. Retroflexed views of the LES were fairly unremarkable. Mild gastropathy was appreciated in the antrum and therefore biopsies were taken for exclusion of Helicobacter or other pathology. 3. Esophagus: The squamocolumnar junction correlated with the top of the gastric folds. GEJ was at approximately 40 cm from the incisors. No acute erosive changes no strictures no mass lesions. The remainder of the esophagus appeared normal. 4. Colon: Patient had a slightly redundant colon. We resorted to use of the stiffening abhinav and some abdominal pressure to obtain cecal intubation. No significant polyps mass lesions or inflammatory features identified throughout. Grade 2 internal hemorrhoids were identified. Endoscopic diagnosis 1. Mild gastropathy 2. Proximal duodenal erosions 3. Otherwise visually unremarkable EGD 4. Grade 2 hemorrhoids 5. Otherwise visually unremarkable colonoscopy Post-procedure Plan for aftercare: 1. Await histology 2. Minimize NSAID therapy 3. Repeat colonoscopy 5-10 years 4. Follow up GI clinic Disposition: PACU
[2023-07-18 12:04] VITALS: BP 122/78; PULSE 92; RESP 16; TEMP 36.4; O2SAT 98
[2023-07-18 12:09] VITALS: BP 133/97; PULSE 99; RESP 18; O2SAT 100
[2023-07-18 12:16] VITALS: BP 125/81; PULSE 87; RESP 18; TEMP 36.4; O2SAT 99
[2023-07-18 12:19] VITALS: BP 135/83; PULSE 91; RESP 18; TEMP 36.6; O2SAT 99
== END 2023-07-18 12:33 | disposition home or self-care (01) ==
PROVIDERS: PCP Nurse Practitioner Family; Referring Provider Internal Medicine Gastroenterology; Visit Provider Internal Medicine Gastroenterology
PROC: 0DJ08ZZ Inspection of Upper Intestinal Tract, Via Natural or Artificial Opening Endoscopic (ICD-10-PCS; CPT 43235; principal; 2023-07-18 11:00)
PROC: 0DJD8ZZ Inspection of Lower Intestinal Tract, Via Natural or Artificial Opening Endoscopic (ICD-10-PCS; CPT 45378; 2023-07-18 11:00)
DX: Z12.11 Encounter for screening for malignant neoplasm of colon (principal); Z80.0 Family history of malignant neoplasm of digestive organs; R11.2 Nausea with vomiting, unspecified; K64.1 Second degree hemorrhoids; K31.9 Disease of stomach and duodenum, unspecified; K29.50 Unspecified chronic gastritis without bleeding; K29.80 Duodenitis without bleeding
CPT/HCPCS: 43239; G0105

== ENCOUNTER → 2025-01-01 13:18 | Outpatient (CLI) | payer MEDICARE, MEDICAID, SELFPAY ==
[2022-06-18 13:16] VITALS: BMI 43.0
--- NOTE | 2025-01-01 13:21 | DI.ECHO.S_ITS ---
[facility] : : [address] : : [place] : : [id number] : : Phone: [phone] Echocardiogram Report + + :Name: RONNY LANDIN Study Date: 01/01/2025 Height: 68 in : :[facility] ReadingLocation: Weight: 296 lb : : Gender: Female BSA: 2.4 m2 : :: 1980 Age: 44 yrs BP: 144/88 mmHg: :Reason For Study: CHEST PRESSURE : :Ordering Physician: EDWIGE HARTMAN Performed By: Don Baez : :Referring: EDWIGE HARTMAN : + + Interpretation Summary TDS - MORBID OBESITY 1. The left ventricular contractility is normal. Estimate ejection fraction is greater than 55% with no segmental wall motion abnormalities. Left ventricular thickness is on the upper limits of normal. No diastolic dysfunction. 2. The right ventricle is not well-visualized. 3. Left ventricle and left atrium are of normal size. The right atrium and right ventricle were not well-visualized. 4. No obvious valvular abnormalities appreciated. 5. No obvious intracardiac shunts. 6. No intracardiac masses nor thrombi. 7. No hemodynamically significant pericardial effusion. Conclusion: Normal left ventricular function with no obvious valvular abnormalities. Procedure: A two-dimensional transthoracic echocardiogram with color flow and Doppler was performed. A contrast injection of Definity was performed to improve assessment of LV function. The study quality was technically difficult. The study quality was technically limited. There is no prior echocardiogram noted for this patient. The patient was in normal sinus rhythm during the exam. Left Ventricle: The left ventricle is normal in size. Left ventricular wall thickness is at the upper limits of normal. The ejection fraction is estimated to be 55-60%. Right Ventricle: The right ventricle is not well visualized. Atria: The left atrial size is normal. Right atrium not well visualized. The interatrial septum is not well visualized. Mitral Valve: The mitral valve is not well visualized. There is no mitral regurgitation noted. Aortic Valve: The aortic valve is not well visualized. No aortic regurgitation is present. Tricuspid Valve: The tricuspid valve is not well visualized. No tricuspid regurgitation. Pulmonic Valve: The pulmonic valve is not well visualized. There is no pulmonic valvular regurgitation. Great Vessels: The aortic root is normal size. The ascending aorta could not be visualized. The pulmonary is not well visualized. The inferior vena cava was not visualized. Pericardium/ Pleura There is no pericardial effusion. MMode/2D Measurements & Calculations LVIDd: 4.8 cm LVOT diam: 2.0 cm LVIDs: 3.1 cm Ao root diam: 2.7 cm FS: 35.3 % asc Aorta Diam: 2.9 cm EPSS: 0.89 cm IVSd: 0.96 cm LVPWd: 1.1 cm LV zelaya. diameter/BSA (cm/m^2): 2.0 LV sys. diameter/BSA (cm/m^2): 1.3 LA A2 area: 16.2 cm2 RA long axis: 4.4 cm LA A4 area: 14.9 cm2 RA area: 15.4 cm2 LA length (vol): 5.0 cm RA vol: 45.5 ml LA vol: 41.3 ml RA : 18.8 ml/m2 LA vol index: 17.1 ml/m2 Doppler Measurements & Calculations Ao V2 max: 135.9 cm/sec LVOT Max Tacho: 108.7 cm/sec Ao V2 mean: 103.2 cm/sec LV V1 max P.7 mmHg Ao max P.4 mmHg LV V1 VTI: 22.1 cm Ao mean P.6 mmHg CLARKE(I,D): 2.4 cm2 Ao V2 VTI: 28.3 cm CLARKE(V,D): 2.5 cm2 sev ratio: 0.78 CLARKE indexed to BSA (cm^2/m^2): 1.0 MV E max tacho: 88.1 cm/sec PA V2 max: 130.0 cm/sec MV A max tacho: 89.1 cm/sec PA V2 mean: 92.5 cm/sec MV E/A: 0.99 PA mean P.8 mmHg Med Peak E' Tacho: 7.3 cm/sec PA pr(Accel): 44.7 mmHg E/E' med: 12.2 Lat Peak E' Tacho: 9.2 cm/sec E/E' lat: 9.5 E/e' average: 10.8 MV dec time: 0.16 sec SV(LVOT): 68.5 ml Reading Physician:KATIE
--- NOTE | 2025-01-01 13:22 | DI.NM.S_ITS ---
PROCEDURE: NM EXERCISE TREADMILL NON NUC COMPARISON: None. INDICATIONS: CHEST PRESSURE FINDINGS: The patient exercised for 6 minutes and 8 seconds reaching 97% of maximum predicted heart rate. Appropriate BP response to exercise. Reduced exercise tolerance (7METs, ALANIS +26%). No diagnostic ST changes, no ectopy and no angina during the study. IMPRESSION: Low risk, normal treadmill ECG only stress test from inducible ischemia standpoint. Reduced exercise tolerance (7METs, ALANIS +26%). No angina during the study. Dictated by: Cait Gonzalez MD on 01/02/2025 at 14:12 Approved by: Cait Gonzalez MD on 01/02/2025 at 14:14
== END ==
LOC: ECHO 13:19
PROVIDERS: PCP Nurse Practitioner Family; Referring Provider Internal Medicine; Visit Provider Internal Medicine
DX: R07.89 Other chest pain (principal)
CPT/HCPCS: 93017; C8929; Q9957

== ENCOUNTER → 2025-02-12 11:16 | Outpatient (CLI) | payer MEDICARE, MEDICAID, SELFPAY ==
[2022-06-18 13:16] VITALS: BMI 43.0
[2025-02-12 14:51] LABS: Appearance Urine UA CLEAR; Bilirubin Urine UA NEGATIVE (NEGATIVE); Color Urine UA YELLOW; Glucose Urine UA NEGATIVE (Negative); Ketones Urine UA NEGATIVE (NEGATIVE); Leukocyte Esterase Urine UA NEGATIVE (NEGATIVE); Nitrite Urine UA NEGATIVE (Negative); Occult Blood Urine UA NEGATIVE (Negative); Protein Urine UA NEGATIVE (Negative); Urobilinogen Urine UA 0.2 E.U./dL (0.2)
[2025-02-12 14:52] LABS: pH Urine UA 5.5 (4.5-8.0)
[2025-02-12 14:53] LABS: Bacteria Urine None Seen; RBC Urine None Seen (0-5/HPF); Squamous Epithelial Cell Urine 1-5 /HPF (0-5/HPF); Urine Volume Low Vol <10mL unspun; WBC Urine None Seen (0-5/HPF)
[2025-02-12 14:54] LABS: Culture Indicated Urine Cult Not Indicated
[2025-02-13 14:40] LABS: Candida species Negative (Negative); Gardnerella vaginalis Negative (Negative); Trichomoas vaginalis Negative (Negative)
== END ==
PROVIDERS: PCP Nurse Practitioner Family; Visit Provider Obstetrics & Gynecology Gynecology
DX: B37.9 Candidiasis, unspecified (principal); N39.0 Urinary tract infection, site not specified; N39.46 Mixed incontinence
CPT/HCPCS: 81001; 87480; 87510; 87660

== ENCOUNTER → 2025-04-30 12:08 | Outpatient (CLI) | payer MEDICARE, MEDICAID, SELFPAY ==
[2022-06-18 13:16] VITALS: BMI 43.0
[2025-04-30 17:27] LABS: Appearance Urine UA CLOUDY; Bilirubin Urine UA NEGATIVE (NEGATIVE); Color Urine UA YELLOW; Glucose Urine UA NEGATIVE (Negative); Ketones Urine UA NEGATIVE (NEGATIVE); Leukocyte Esterase Urine UA NEGATIVE (NEGATIVE); Nitrite Urine UA NEGATIVE (Negative); Occult Blood Urine UA NEGATIVE (Negative); Protein Urine UA NEGATIVE (Negative); Specific Gravity Urine UA 1.025 (1.000-1.035); Urobilinogen Urine UA 0.2 E.U./dL (0.2); pH Urine UA 6.0 (4.5-8.0)
[2025-04-30 17:36] LABS: Culture Indicated Urine Cult Not Indicated
== END ==
PROVIDERS: PCP Nurse Practitioner Family; Visit Provider Obstetrics & Gynecology Gynecology
DX: N39.0 Urinary tract infection, site not specified (principal); N39.41 Urge incontinence; N32.81 Overactive bladder; N39.3 Stress incontinence (female) (male)
CPT/HCPCS: 51701; 81001; 99213